=== PATIENT | female | born 1975 | race Caucasian/White ===

== ENCOUNTER 2021-03-21 08:59 | Emergency (ER) | payer SELFPAY ==
[~2021-03-21] VITALS: Ht 160 cm; Wt 95.0 kg
[2021-03-21] MEDS ORDERED: CYCLOBENZAPRINE 10MG TABLET PO ONE (10:30)
[2021-03-21] MEDS ORDERED: IBUPROFEN 600MG TABLET PO ONE (11:00)
[2021-03-21] MEDS ORDERED: IBUP-2029 MT (11:11)
[2021-03-21 11:34] VITALS: BP 132/86
== END 2021-03-21 11:35 | disposition home or self-care (01) ==
LOC: EDBD 08:59 → ER 08:59 → EDSEX 08:59 → ER 11:35
DX: M54.5 Low back pain (principal); Z90.49 Acquired absence of other specified parts of digestive tract; Z98.51 Tubal ligation status
CPT/HCPCS: 81025; 99283